=== PATIENT | male | born 1940 | race Caucasian/White ===

== ENCOUNTER 2023-10-12 14:56 | Emergency (ER) | payer MEDICARE, OTHER, SELFPAY ==
[2023-10-12 14:59] VITALS: BP 150/80
[2023-10-12 15:11] LABS: COVID-19 Antigen Positive (Negative)
--- NOTE | 2023-10-12 15:23 | ED.GENMED ---
History of Present Illness
General
Chief Complaint: Fever
Source: patient
Exam Limitations: none
Time Seen by Provider: 10/12/23 15:09
Nursing documentation reviewed up to this point in time: agreed with
Travel History
Have you had any contact with someone who has COVID-19?: No
Do you have any symptoms of coronavirus? Fever > 100 degrees, chills, cough, shortness of breath, sore throat, loss of taste or smell, muscle aches, or headache?: No
History of Present Illness
History of Present Illness:
83-year-old male with history of HTN, HLD, transplanted [id number], NIDDM presents having tested + for Covid at home. He developed sweating during the night, fatigue and tested himself at home. He denies CP, SOB, abd pain, n/v/d/c. He feels well
otherwise. at bedside, they are asking about Paxlovid.
Past History
Past History
ED Past Medical History: CVA, HTN, Hypercholesterolemia, NIDDM, Renal failure, Other (ecoli sepsis May 2019) and Other (skin cancer)
ED Past Surgical History: Orthopedic (left arm surgery), Urological (Right kidney Transplant 2017) and Other (hernia surgery,)
Social History
Tobacco: Former smoker
Alcohol: Occasional
Drug: None
Personal:
Living: with family
Employment: Retired
Family History
Family History: Other (Noncontributory)
Review of Systems
Review of Systems
Allergies reviewed?: Yes
All Other Systems: ROS reviewed and negative except as documented in HPI and ROS
Constitutional: Reports fever and fatigue; Denies chills
EENT: Denies sore throat
Respiratory: Reports no symptoms
Cardiac: Reports diaphoresis (was sweating during the night); Denies chest pain, palpitations or syncope
ABD/GI: Reports no symptoms
: Reports no symptoms
Musculoskeletal: Reports no symptoms
Skin: Reports no symptoms
Neurological: Reports no symptoms
Phy Exam
Physical Exam
Physical Exam:
GENERAL: No acute distress. A&Ox3.
CONSTITUTIONAL: 99.7
EYES: clear, conjunctivae normal
ENMT: moist mucus membranes, Pharynx nl
RESPIRATORY: Regular respirations, nonlabored, lungs clear.
CARDIOVASCULAR: Regular rate and rhythm, no murmurs, no rubs.
GI: Soft, nontender, normal BS
MUSCULOSKELETAL: Moves with ease. Well perfused.
SKIN: Warm, dry, pink
PSYCH: Normal mood and affect. Well kept, interactive and appropriate
NEUROLOGIC: Awake, alert and oriented. No focal neurological deficits
Course
Orders/Labs/Results
Orders:
Orders
10/12/23 15:03
COVID-19 Antigen Urgent
Source: Nasal Swab
Influenza A+B Rapid Molecular Urgent
PAVEL Source: Nasal Swab
Specimen Description:
Abnormal Lab Results
10/12/23
15:03
SARS-CoV-2 Antigen Positive A
(Negative)
Vital Signs
Initial and Last Documented VS:
Initial Vital Signs
Temp Pulse Resp BP Pulse Ox
99.7 F 65 18 150/80 95
10/12/23 14:59 10/12/23 14:59 10/12/23 14:59 10/12/23 14:59 10/12/23 14:59
Last Documented Vital Signs
Temp Pulse Resp BP Pulse Ox
99.7 F 65 18 150/80 95
10/12/23 14:59 10/12/23 14:59 10/12/23 14:59 10/12/23 14:59 10/12/23 14:59
MDM/Problems Addressed
Differential Diagnosis Includes:
covid
MDM/Problems Addressed:
83-year-old male with history of HTN, HLD, transplanted [id number], NIDDM presents having tested + for Covid at home. He developed sweating during the night, fatigue, fever 100.0 earlier today and took Tylenol. Tested himself at home. He denies CP,
SOB, abd pain, n/v/d/c. He feels well otherwise. at bedside, they are asking about Paxlovid.
Spoke with Pharmacist Chloé who confirms that due to pt taking Tacrolimus, cannot take Paxlovid
Pt informed.
This is a very well appearing, pleasant man, not at all ill appearing.
He is comfortable going home and is stable for discharge.
Chronic conditions affecting care: DM, HTN, Immunosuppressed and Kidney disease (kidney transplant)
*Critical Care Note
Total Time (30-74mins, 75-104mins- exclusive of procedures): Not Applicable
ED Attending Note
-
Portions of this chart may have been created with voice recognition software.� Occasional wrong word or��sound alike� substitutions may have occurred due to the inherent limitations of voice recognition software.
Discharge Plan
Departure
Patient Disposition: Home (Routine Discharge)
Date of Disposition: 10/12/23
Time of Disposition: 15:34
Patient with high blood pressure during this ER visit?: No
Condition: Good
Covid-19: Confirmed COVID-19
Discharge Problem:
COVID-19
Instructions: Fever, Adult (DC), COVID-19 ED, Coronavirus Home Quarantine
Prescriptions:
No Action
allopurinol 100 MG tablet
100 mg PO DAILY
aspirin [Pepe Chewable Aspirin] 81 MG tablet,chewable
81 mg PO MOWEFR
doxazosin 2 MG tablet
4 mg PO HS
fluticasone propionate 1 SPRAY spray,suspension
2 spray intranasal DAILYPRN PRN (Reason: nasal congestion)
docusate sodium 100 MG capsule
100 mg PO DAILY@1200
tacrolimus 1 MG capsule
1 mg PO DAILY
amlodipine 5 MG tablet
10 mg PO DAILY
metoprolol tartrate 12.5 MG tablet
12.5 mg PO BID
magnesium oxide 400 MG tablet
400 mg PO DAILY Qty: 0 0RF
tacrolimus 0.5 mg Capsule
0.5 mg PO QPM
mycophenolate sodium 180 mg tablet,delayed release (DR/EC)
540 mg PO BID
metformin 500 mg Tablet Extended Release 24hr
1,000 mg PO QPM
acetaminophen [Tylenol] 325 mg Tablet
650 mg PO Q6HPRN PRN (Reason: mild pain)
famotidine [Pepcid] 20 mg Tablet
20 mg PO DAILY
Referrals:
William Jang MD [Family Provider] - As needed
Activity Restrictions/Additional Instructions:
As we discussed, due to your taking Tacrolimus, you cannot take Paxlovid due to possible interaction.
Follow the Covid instructions provided.
Tylenol as needed for fever.
Interventions
Interventions:
*Risk Screen - Suicide Last Done: 10/12/23 14:59
*General Assessment Last Done: 10/12/23 14:59
*Neglect/Abuse Screening Last Done: 10/12/23 14:59
ED- Fall Risk Assessment Last Done: 10/12/23 15:44
*ED COVID-19 Vaccine History Last Done: 10/12/23 15:44
*Nursing Disposition Last Done: 10/12/23 15:48
ED- Neurological Assessment Last Done: 10/12/23 15:44
ED-Skin Assessment Last Done: 10/12/23 15:44
Discharge Date and Time
Discharge Date/Time: 10/12/23 15:56
Print Language: COLOMBIAN
[2023-10-12 15:43] VITALS: BMI 28.0
== END 2023-10-12 15:56 | disposition home or self-care (01) ==
LOC: EMR 14:56
PROVIDERS: Emergency Medicine; EMERGENCY PHYSICIAN Emergency Medicine; FAMILY PHYSICIAN Family Medicine
DX: U07.1 COVID-19 (principal); I10 Essential (primary) hypertension; E78.00 Pure hypercholesterolemia, unspecified; R61 Generalized hyperhidrosis; R53.83 Other fatigue; E11.9 Type 2 diabetes mellitus without complications; I12.9 Hypertensive chronic kidney disease with stage 1 through stage 4 chronic kidney disease, or unspecified chronic kidney disease; E11.22 Type 2 diabetes mellitus with diabetic chronic kidney disease; N18.9 Chronic kidney disease, unspecified; Z94.0 Kidney transplant status; D84.81 Immunodeficiency due to conditions classified elsewhere; D84.821 Immunodeficiency due to drugs; Z85.828 Personal history of other malignant neoplasm of skin; Z86.73 Personal history of transient ischemic attack (TIA), and cerebral infarction without residual deficits; Z87.891 Personal history of nicotine dependence
CPT/HCPCS: 99282; 87502; 87811

== ENCOUNTER → 2023-10-20 12:49 | Outpatient (REF) | payer MEDICARE, OTHER, SELFPAY | LOC: RAD 12:49 | PROVIDERS: ATTENDING PHYSICIAN Nurse Practitioner Family | DX: R05.3 Chronic cough (principal) | CPT/HCPCS: 71046 ==

== ENCOUNTER → 2024-03-01 14:21 | Outpatient (REF) | payer MEDICARE, OTHER, SELFPAY | LOC: HWRAD 14:21 | PROVIDERS: ATTENDING PHYSICIAN Specialist; FAMILY PHYSICIAN Family Medicine | DX: Z94.0 Kidney transplant status (principal); R30.0 Dysuria | CPT/HCPCS: 76770 ==